=== PATIENT | male | born 1995 | race Two or more races ===

== ENCOUNTER 2017-04-13 12:33 | Inpatient (IN) | payer OTHER ==
[2017-04-13] VITALS (32 sets, daily range): BP systolic 69–150; BP diastolic 39–99
[~2017-04-13] VITALS: Ht 172.7 cm; Wt 37.2 kg
--- NOTE | 2017-04-13 12:45 | NUR ---
PATIENT BIB RA D/T LOW BP. PATIENT IS VENT/TRACH DEPENDENT. CARVALHO AND RECTAL TUBE IN PLACE. GT INTACT. SBP RUNNING IN 80'S. SAFETY AND COMFORT MEASURES IN PLACE. AWAITING MD ORDERS. Addendum: 04/13/17 at 1406 by DEON DOCUMENTATION ERROR: NO CARVALHO CATH IN PLACE UPONR ARRIVAL TO ER.
[2017-04-13] MEDS ORDERED: PIPERACILLIN /TAZOBACTAM 3.375 G in IV D5W 50 ML IV ONE (13:00)
[2017-04-13] MEDS ORDERED: IV NS 0.9% 1,000 ML BAG IV ONE (13:00)
[2017-04-13] MEDS ORDERED: VANCOMYCIN 1 GM in IV D5W 250 ML IV ONE (13:00)
--- NOTE | 2017-04-13 13:25 | NUR ---
NEW IV INSERTED ON LFA, 18 G. BLOOD DRAWN AND SENT TO LAB.
[2017-04-13 13:35] LABS: BASOPHILS % (AUTO) 0.2 % (0.0-2.0); EOSINOPHILS # (AUTO) 0.1 /CMM (0.0-0.7); EOSINOPHILS % (AUTO) 0.7 % (0.0-6.0); HEMATOCRIT 33 % (39-51); HEMOGLOBIN 10.8 g/dL (13.5-17.5); LYMPHOCYTES # (AUTO) 1.7 /CMM (0.8-4.8); LYMPHOCYTES % (AUTO) 14.3 % (20.0-44.0); MEAN CORPUSCULAR HEMOGLOBIN 32 PG (26.0-33.0); MEAN CORPUSCULAR HGB CONC 33 g/dl (31.0-36.0); MEAN CORPUSCULAR VOLUME 96 fL (80-96); MONOCYTES # (AUTO) 0.9 /CMM (0.1-1.30); MONOCYTES % (AUTO) 7.4 % (2.0-12.0); NEUTROPHILS # (AUTO) 9.4 /CMM (1.8-8.9); NEUTROPHILS % (AUTO) 77.4 % (43.0-81.0); PLATELET COUNT (AUTO) 276 /CMM (150-450); RDW COEFFICIENT OF VARIATION 18.2 (11.5-15.0); WHITE BLOOD COUNT (AUTO) 12.1 K/uL (4.3-11.0)
[2017-04-13 13:52] LABS: CALCIUM, SERUM 8.9 mg/dL (8.5-10.1); CARBON DIOXIDE 23 mmol/L (21-32); CHLORIDE 101 mmol/L (98-107); CREATININE 2.8 mg/dL (0.6-1.3); GLUCOSE 107 mg/dL (74-106); SODIUM SERUM 141 mmol/L (136-145)
[2017-04-13 13:54] LABS: UREA NITROGEN, BLOOD 104 mg/dL (7-18)
--- NOTE | 2017-04-13 13:55 | NUR ---
16 FR gonzalez catheter inserted per sterile protocal. Immediate output 0 ML of urine.
[2017-04-13 13:56] LABS: TROPONIN I < 0.017 ng/mL (0.00-0.056)
[2017-04-13 13:59] LABS: INR 1.12 (0.87-1.13); PROTHROMBIN TIME 12.1 SECS (9.5-12.7)
[2017-04-13 14:08] LABS: ALANINE AMINOTRANSFERASE 48 U/L (12-78); ALBUMIN 3.1 g/dL (3.4-5.0); ALKALINE PHOSPHATASE 185 U/L (46-116); ASPARTATE AMINOTRANSFERASE 41 U/L (15-37); BILIRUBIN,DIRECT 0.1 mg/dL (0.0-0.2); BILIRUBIN,TOTAL 0.3 mg/dL (0.2-1.0); TOTAL PROTEIN, SERUM 9.3 g/dL (6.4-8.2)
--- NOTE | 2017-04-13 14:15 | NUR ---
DR ELIZONDO CALLED AND SPOKE WITH DR HERNANDEZ
--- NOTE | 2017-04-13 14:18 | NUR ---
DR WELLS/ON-CALL PAGED
--- NOTE | 2017-04-13 14:30 | NUR ---
NEW IV INSERTED ON RAC, 20 G.
--- NOTE | 2017-04-13 15:05 | NUR ---
REPORT GIVEN TO HAZEL GUTIERREZ FOR AUDELIA. PATIENT TO BE ADMITTED TO [facility].
--- NOTE | 2017-04-13 15:43 | NUR ---
PATIENT TRANSPORTED TO ICU VIA STRETCHER WITH RT, EMT, AND RN. RNHAZEL TO PROVIDE AUDELIA.
--- NOTE | 2017-04-13 15:45 | NUR ---
ICU INITIAL NOTES RECEIVED PT VIA SOELDAD, A/O X0, RESPONSES TO TACTILE AND PAIN STIMULI, PT IS ON THE [facility] VENT SHILEY # 8 AC 20 TV 500 FIO2 40% PEEP5, SATING 100%, NO S/S OF RESP. DISTRESS OR SOB NOTED AT THIS TIME, PT WAS PLACED ON MONITOR SHOWING ST @109 BPM, NO S/S OF DISCOMFORT OR DISTRESSED NOTED AT THIS TIME, PT HAS F/C DRAINING CLOUDY CHRISSY URINE TO GRAVITY, OLD FLEXISEAL REMOVED AND NEW ONE PUT IN, PT HAS MULTIPLE SKIN ISSUES, PHOTOS TAKEN AND IN CHART, PT IS CONTRACTED, PT HAS LFA#18G,SL, RAC #18G,SL, RCW GALEN CATH, DRESSING INTACT AND CLEAN, VICKIE PICC LINE WAS INSERTED, PT HAS GTUBE, FLUSHING WELL, ALL SAFETY MEASURES IN PLACE AT ALL TIMES, CALL LIGHT WITHIN EASY REACH, WILL MONITOR PT CLOSELY FOR CHANGES
--- NOTE | 2017-04-13 15:58 | NUR ---
[facility] APPLICATION ANALYST; MD DR. MORAN'S EXCHANGED CALLED FOR ADMITTING ORDERS. UNABLE TO SPEAK WITH . EXCHANGED PAGE . WILL F.U WITH CALL BACK
[2017-04-13] MEDS ORDERED: ONDANSETRON HCL/PF 4 MG/2 ML VIAL IVP PRN (16:30)
[2017-04-13] MEDS ORDERED: ZOLPIDEM TARTRATE 5 MG TABLET PO PRN (16:30)
--- NOTE | 2017-04-13 16:48 | NUR ---
PUFF IRON OPERATOR NOTE: CALL MADE TO DR. STEARNS FOR PULMONARY CONSULT. RN SPOKE TO DR. STEARNS, INFORMED OF PATIENT. RECEIVED ORDER FOR SECOND PRESSOR OF LEVOPHED TO BE STARTED IF DOPAMINE INEFFECTIVE. ORDER READ BACK AND VERIFIED. WILL CARRY OUT.
[2017-04-13] MEDS ORDERED: DOPamine 800 MG in IV D5W 250 ML IV PRN ×4 (17:00)
[2017-04-13] MEDS ORDERED: NOREPINEPHRINE 16 MG in IV D5W 500 ML IV PRN (17:00)
[2017-04-13] MEDS ORDERED: CARV25TA2 PEG (17:04)
[2017-04-13] MEDS ORDERED: LEVE500T9 PEG (17:04)
[2017-04-13] MEDS ORDERED: OMEP40CA37 PEG (17:04)
[2017-04-13] MEDS ORDERED: PHEN20EL5 PEG (17:04)
[2017-04-13] MEDS ORDERED: METO5SOL GT (17:04)
[2017-04-13] MEDS ORDERED: LEVE100S GT (17:04)
[2017-04-13] MEDS ORDERED: ATOR20TA PEG (17:04)
[2017-04-13] MEDS ORDERED: ASPI-605 PEG (17:04)
[2017-04-13] MEDS ORDERED: LISI2.5T2 PEG (17:04)
[2017-04-13] MEDS ORDERED: FOLI0.8T2 PEG (17:04)
[2017-04-13] MEDS ORDERED: DARB100D SQ (17:05)
[2017-04-13] MEDS: IV NS 0.9% 1,000 ML IV PRN (17:18)
[2017-04-13 17:33] LABS: ABG BASE EXCESS -6.9 mmol/L; ABG OXYGEN SATURATION 98.8 % (92.0-98.5); ABG PCO2 26.2 mmHg (35.0-45.0); ABG PH 7.414 (7.350-7.450); ABG PO2 207.2 mmHg (75.0-100.0); AaDO2 47.9 mmHg; COHb 0.3 % (0.5-1.5); MetHb 0.9 % (0.0-1.5); O2Hb 97.6 % (94.0-97.0); SITE, ABG Right Radial
--- NOTE | 2017-04-13 18:44 | NUR ---
ICU NOTES CALLED PHARMACY X3, REGARDING ABX AND PRESSORS, INFORMED ME THAT IT WILL BE UP SOON
[2017-04-13] MEDS ORDERED: FEE PK DOSING 1 MIN EA MC ONE (18:52)
[2017-04-13] MEDS ORDERED: VANCOMYCIN 500 MG in IV D5W 100 ML IV PRN (19:30)
--- NOTE | 2017-04-13 19:30 | NUR ---
MAINTENANCE MECHANIC ELEVATORS: RECEIVED VENTILATOR DEPENDENT PT AND TOLERATING VENT SETTINGS ORDERED. OBTUNDED, OPENS EYES, NO EVIDENCE OF DISCOMFORT. SR ON HEALTH ECONOMIST. WITH STANDING ORDERS FOR VASOPRESSORS AND WILL START NEEDED. AFEBRILE. ON NS AT 50ML/HR. ALL IV SITES PATENT AND INTACT WT GOOD BLOOD RETURN ON VICKIE PICC LINE. GT CLAMPED. F/C PATENT AND INTACT DRAINING MINIMAL AMT. OF CHRISSY COLORED URINE. SAFETY PRECAUTION NOTED. WILL CONTINUE TO MONITOR.
[2017-04-13] MEDS: PIPERACILLIN /TAZOBACTAM 2.255 G in IV D5W 50 ML IV SCH (19:55)
--- NOTE | 2017-04-13 21:05 | NUR ---
OBSERVATORY DIRECTOR: DOPAMINE STARTED FOR BP SUPPORT. WILL CONTINUE TO MONITOR.
--- NOTE | 2017-04-13 21:11 | NUR ---
PT RECEIVED TRACH ON VENT ON NOTED SETTINGS. NO DISTRESS NOTED. PT TOLERATING VENT SETTINGS. SX'D FOR MOD AMT OF THICK PALE SECRETIONS. VENT ALARMS SET AND AUDIBLE. AMBU BAG AT BEDSIDE. WILL CONTINUE TO MONITOR. Addendum: 04/13/17 at 2112 by CORBY LUTZ RT Amended: Links added.
[2017-04-13] MEDS: HEPARIN SODIUM, PORCINE 5000 UNITS/1 ML VIAL SQ SCH (21:12)
[2017-04-14] VITALS (88 sets, daily range): BP systolic 88–167; BP diastolic 45–116
[2017-04-14] MEDS: PIPERACILLIN /TAZOBACTAM 2.255 G in IV D5W 50 ML IV SCH ×4 (00:58→17:09)
[2017-04-14] MEDS: ACETAMINOPHEN 325 MG TABLET PO PRN (01:06)
--- NOTE | 2017-04-14 02:00 | NUR ---
FOURTH HAND: REASSESSMENT DONE AFTER TYLENOL WAS GIVEN WT GOOD EFFECT. NO EVIDENCE OF DISCOMFORT M/B FACIAL GRIMACE AT THIS TIME. SR ON STUDENT NURSE.
[2017-04-14 04:54] LABS: BASOPHILS # (AUTO) 0.1 /CMM (0.0-0.2); BASOPHILS % (AUTO) 0.6 % (0.0-2.0); HEMATOCRIT 26 % (39-51); HEMOGLOBIN 8.8 g/dL (13.5-17.5); LYMPHOCYTES # (AUTO) 1.2 /CMM (0.8-4.8); LYMPHOCYTES % (AUTO) 13.9 % (20.0-44.0); MEAN CORPUSCULAR HEMOGLOBIN 32 PG (26.0-33.0); MEAN CORPUSCULAR HGB CONC 33 g/dl (31.0-36.0); MEAN CORPUSCULAR VOLUME 96 fL (80-96); MONOCYTES # (AUTO) 0.5 /CMM (0.1-1.30); MONOCYTES % (AUTO) 5.6 % (2.0-12.0); NEUTROPHILS # (AUTO) 6.9 /CMM (1.8-8.9); NEUTROPHILS % (AUTO) 79.9 % (43.0-81.0); PLATELET COUNT (AUTO) 210 /CMM (150-450); RDW COEFFICIENT OF VARIATION 17.6 (11.5-15.0); RED BLOOD CELL COUNT(AUTO) 2.75 MIL/uL (4.5-6.0); WHITE BLOOD COUNT (AUTO) 8.6 K/uL (4.3-11.0)
[2017-04-14 05:04] LABS: CALCIUM, SERUM 8.7 mg/dL (8.5-10.1); CREATININE 2.1 mg/dL (0.6-1.3); MAGNESIUM 1.9 mg/dL (1.8-2.4); PHOSPHORUS 4.3 mg/dL (2.5-4.9); POTASSIUM 3.5 mmol/L (3.5-5.1)
--- NOTE | 2017-04-14 06:45 | NUR ---
ANALYSIS OR RESEARCH SAFETY INSPECTOR: NO SIGNIFICANT AUDELIA DURING THE SHIFT. STILL ON DOPAMINE 17MCG/KG/MIN FOR BP SUPPORT. REMAINED AFEBRILE.
[2017-04-14] MEDS ORDERED: PANTOPRAZOLE 40 MG TABLET.DR PO SCH (07:30)
--- NOTE | 2017-04-14 07:40 | NUR ---
RT PATIENT REC'D TRACHED ON [facility] VENT WITH NOTED SETTINGS ALIE WELL. VENT ALARMS CHECKED + AUDIBLE. VENT PLUGGED INTO RED OUTLET. PATIENT SX'D WITH SMALL AMT PALE SEMITHICK SECRETIONS. B/S BRANDON OJEDA. AMBU BAG AT [facility]. CONT CURRENT PLAN OF RESP CARE Addendum: 04/14/17 at 0954 by FATIMAH PEDRESEN RT Amended: Links added.
[2017-04-14] MEDS ORDERED: HYDROGEL DRESSING 90 GM TUBE TP PRN (08:00)
--- NOTE | 2017-04-14 08:02 | NUR ---
WOUND CARE CONSULT: PT PRESENTS WITH STAGE 3 ULCER TO SACRUM AND DEEP TISSUE INJURY (INTACT) TO RT BUTTOCK WELL SCARRING TO LEFT HIP AND BACK, PRESENT ON ADMISSION. PT IS EXTREMELY CACHECTIC, IMMOBILE ON VENT. RECTAL TUBE IN PLACE WITH SOME LEAKAGE OF STOOL AROUND TUBE. ALL SKIN PROTECTION MEASURES IN PLACE AND DISCUSSED WITH NURSING STAFF. RECOMMEND SURGICAL CONSULT. WILL SEE PRN. DAMIAN IN AGREEMENT WITH PLAN OF CARE. Addendum: 04/14/17 at 0804 by NANO ORTIZ WNDNU Amended: Links added.
[2017-04-14] MEDS ORDERED: LEVE100S GT (08:13)
[2017-04-14] MEDS: HEPARIN SODIUM, PORCINE 5000 UNITS/1 ML VIAL SQ SCH ×2 (08:58→21:27)
[2017-04-14] MEDS: PANTOPRAZOLE 40 MG/PACK PACK GT SCH (08:58)
[2017-04-14] MEDS: HYDROGEL DRESSING 90 GM TUBE TP SCH (10:45)
--- NOTE | 2017-04-14 11:30 | NUR ---
ICU/RN - Notes Dobutamine titrated off, and discontinued per Dr Jean. Pt to be kept NPO for now, per Dr Jean, will resume tube feeding at another time. Mother at bedside. Addendum: 04/14/17 at 1906 by HENRRY MELCHOR RN ERROR: Dopamine drip titrated off, not Dobutamine.
[2017-04-14] MEDS ORDERED: MORPHINE SULFATE INJ 2 MG/ML DISP.SYRIN IV PRN ×2 (12:00→16:00)
[2017-04-14] MEDS ORDERED: EPOETIN ALFA (10,000 UNIT) 10,000 UNIT/ML VIAL IV ONE (12:00)
--- NOTE | 2017-04-14 12:32 | NUR ---
ICU/RN - Notes Pt noted with facial grimacing, tachycardia appears in discomfort. Administered Morphine 2mg IVP as ordered for PRN pain. Comfort measures rendered. Family at bedside. Will reassess pain accordingly.
[2017-04-14] MEDS: MORPHINE SULFATE INJ 2 MG/ML DISP.SYRIN IV PRN ×2 (14:36→18:54)
--- NOTE | 2017-04-14 14:36 | NUR ---
ICU/RN - Notes Pt still appears to be in discomfort, with facial grimacing, hypertension, tachycardia. Administered Morphine 4mg IVP as ordered for PRN pain. Comfort measures rendered. Will reassess pain accordingly.
[2017-04-14] MEDS: IV NS 0.9% 1,000 ML IV PRN (15:44)
[2017-04-14] MEDS: METOCLOPRAMIDE HCL 5 MG/5 ML UDC GT SCH (17:10)
--- NOTE | 2017-04-14 18:00 | NUR ---
ICU/RN - Notes Hemodialysis completed, no output.
--- NOTE | 2017-04-14 20:19 | NUR ---
PT RECEIVED TRACH ON VENT ON NOTED SETTINGS. NO DISTRESS NOTED. PT TOLERATING VENT SETTINGS. SX'D FOR MOD AMT OF THICK WHITE SECRETIONS. VENT ALARMS SET AND AUDIBLE. AMBU BAG AT BEDSIDE. WILL CONTINUE TO MONITOR. Addendum: 04/14/17 at 2020 by CORBY LUTZ RT Amended: Links added.
[2017-04-14] MEDS: ATORVASTATIN 10 MG TABLET PEG SCH (21:21)
[2017-04-14] MEDS: LEVETIRACETAM SOL (5 ML) 100 MG/ML UDC GT SCH (21:26)
[2017-04-15] VITALS (36 sets, daily range): BP systolic 98–146; BP diastolic 52–106
[2017-04-15] MEDS: PIPERACILLIN /TAZOBACTAM 2.255 G in IV D5W 50 ML IV SCH ×4 (00:13→17:00)
[2017-04-15] MEDS: MORPHINE SULFATE INJ 2 MG/ML DISP.SYRIN IV PRN ×3 (01:17→12:28)
[2017-04-15 04:35] LABS: BASOPHILS % (AUTO) 0.9 % (0.0-2.0); EOSINOPHILS # (AUTO) 0.2 /CMM (0.0-0.7); EOSINOPHILS % (AUTO) 2.8 % (0.0-6.0); HEMATOCRIT 23 % (39-51); HEMOGLOBIN 7.9 g/dL (13.5-17.5); LYMPHOCYTES # (AUTO) 1.2 /CMM (0.8-4.8); LYMPHOCYTES % (AUTO) 21.7 % (20.0-44.0); MEAN CORPUSCULAR HEMOGLOBIN 32 PG (26.0-33.0); MEAN CORPUSCULAR HGB CONC 34 g/dl (31.0-36.0); MEAN CORPUSCULAR VOLUME 96 fL (80-96); MONOCYTES # (AUTO) 0.3 /CMM (0.1-1.30); MONOCYTES % (AUTO) 6.4 % (2.0-12.0); NEUTROPHILS # (AUTO) 3.7 /CMM (1.8-8.9); NEUTROPHILS % (AUTO) 68.2 % (43.0-81.0); PLATELET COUNT (AUTO) 170 /CMM (150-450); RDW COEFFICIENT OF VARIATION 18.2 (11.5-15.0); RED BLOOD CELL COUNT(AUTO) 2.45 MIL/uL (4.5-6.0); WHITE BLOOD COUNT (AUTO) 5.4 K/uL (4.3-11.0)
[2017-04-15 04:49] LABS: CALCIUM, SERUM 8.7 mg/dL (8.5-10.1); MAGNESIUM 1.6 mg/dL (1.8-2.4); PHOSPHORUS 3.1 mg/dL (2.5-4.9); POTASSIUM 3.4 mmol/L (3.5-5.1)
[2017-04-15 05:47] LABS: EOSINOPHILS % (MANUAL) 5 % (0-4); LYMPHOCYTES % (MANUAL) 20 % (16-48); MONOCYTES % (MANUAL) 3 % (0-11.0); NEUTROPHILS % (MANUAL) 72 (42-76)
--- NOTE | 2017-04-15 06:40 | NUR ---
BEATER BOSS: NO SIGNIFICANT AUDELIA DURING THE SHIFT. REMAINED ALERT TO SELF. TOLERATING VENT SETTINGS ORDERED WT NO ACUTE DISTRESS. SR/ST ON AIRPLANE PILOT SUPERVISOR. AFEBRILE. PAIN MED GIVEN ORDERED FOR FACIAL GRIMACE & ELEVATED HR WT GOOD EFFECT AFTER REASSESSMENT. TOLERATING IVF WT MINIMAL TEA COLORED URINE. FLEXI SEAL IRRIGATED DUE TO MODERATE AMT. OF SOFT STOOL LEAK. KEPT CLEAN AND DRY. ALL NEEDS MET.
[2017-04-15] MEDS: METOCLOPRAMIDE HCL 5 MG/5 ML UDC GT SCH (08:09)
[2017-04-15] MEDS: ASPIRIN 81 MG TAB.CHEW PEG SCH (08:11)
[2017-04-15] MEDS: VIT B CMPLX 3/FA/VIT C/BIOTIN 1 TAB TABLET PEG SCH (08:11)
[2017-04-15] MEDS: LEVETIRACETAM SOL (5 ML) 100 MG/ML UDC GT SCH ×2 (08:11→21:01)
[2017-04-15] MEDS: PANTOPRAZOLE 40 MG/PACK PACK GT SCH (08:11)
[2017-04-15] MEDS: HYDROGEL DRESSING 90 GM TUBE TP SCH (08:12)
[2017-04-15] MEDS: HEPARIN SODIUM, PORCINE 5000 UNITS/1 ML VIAL SQ SCH ×2 (08:14→21:03)
--- NOTE | 2017-04-15 08:15 | NUR ---
ICU/RN - Notes Pt noted with facial grimacing, tachycardia appears in discomfort. Administered Morphine 2mg IVP as ordered for PRN pain. Comfort measures rendered. Will reassess pain accordingly. Addendum: 04/16/17 at 1106 by HENRRY MELCHOR RN Morphine 4mg not 2mg
[2017-04-15] MEDS ORDERED: PANTOPRAZOLE 40 MG/PACK PACK PEG SCH (09:00)
[2017-04-15] MEDS ORDERED: RENAL NOVASOURCE 1,000 ML BOTTLE GT PRN (09:30)
--- NOTE | 2017-04-15 09:30 | NUR ---
ICU/RN - Notes Dr Morrell at bedside for evaluation. MD made aware of Hgb 7.9, no new orders at this time. Ordered to resume tube feeding, will carry out and monitor for residual.
[2017-04-15] MEDS ORDERED: POTASSIUM CHLORIDE 20 MEQ POWDER PACKET PEG SCH (11:30)
[2017-04-15] MEDS ORDERED: Magnesium 1GM/D5W 100ML PREMIX PIGGYBACK IV ONE (11:30)
[2017-04-15] MEDS: Magnesium 1GM/D5W 100ML PREMIX 100 ML IV SCH ×2 (11:52→13:09)
[2017-04-15] MEDS ORDERED: METOCLOPRAMIDE HCL 10 MG/10 ML UDC GT PRN (15:30)
[2017-04-15] MEDS: IV NS 0.9% 1,000 ML IV PRN (16:03)
--- NOTE | 2017-04-15 20:00 | NUR ---
WATER MANAGER: GT RESIDUAL NOTED AT 250ML IN GREENISH COLOR. WILL HOLD FEEDING AT THIS TIME AND WILL CONTINUE TO MONITOR.
[2017-04-15] MEDS ORDERED: LEVETIRACETAM SOL (5 ML) 100 MG/ML UDC GT SCH (21:00)
[2017-04-15] MEDS: ATORVASTATIN 10 MG TABLET PEG SCH (21:02)
--- NOTE | 2017-04-15 21:05 | NUR ---
MANAGER BALANCE: HELD KEPPRA 500MG/5ML PT ALREADY HAD 1500MG/15ML AND DID NOT HAVE DIALYSIS.
--- NOTE | 2017-04-15 21:07 | NUR ---
PT RECEIVED TRACH ON VENT ON NOTED SETTINGS. NO DISTRESS NOTED. PT TOLERATING VENT SETTINGS. SX'D FOR SML AMT OF THIN SECRETIONS. VENT ALARMS SET AND AUDIBLE. AMBU BAG AT BEDSIDE. WILL CONTINUE TO MONITOR. Addendum: 04/15/17 at 2108 by CORBY LUTZ RT Amended: Links added.
--- NOTE | 2017-04-15 21:40 | NUR ---
IRON CARRIER: CALLED AND NOTIFIED DR. DANIELLE THAT RESIDUAL IS STILL AT 250ML. WT NEW ORDERS TO DC GTF, DC NS AND CHANGE TO D5W AT 50ML/HR, DC REGLAN 50MG VIA GT BID PRN AND CHANGE TO 5MG IVP Q8H. NOTED AND CARRIED OUT.
[2017-04-15] MEDS: IV D5W 1,000 ML IV PRN (22:14)
[2017-04-15] MEDS ORDERED: METOCLOPRAMIDE HCL 10 MG/2 ML VIAL ONE (22:21)
[2017-04-15] MEDS: METOCLOPRAMIDE HCL 10 MG/2 ML VIAL IV SCH (22:22)
[2017-04-16] VITALS (19 sets, daily range): BP systolic 101–155; BP diastolic 54–96
[2017-04-16] MEDS: PIPERACILLIN /TAZOBACTAM 2.255 G in IV D5W 50 ML IV SCH ×2 (00:18→05:20)
--- NOTE | 2017-04-16 04:15 | NUR ---
REALTIME COURT REPORTER: GT RESIDUAL NOTED TO BE MORE THAN 300ML, CLOUDY GREENISH AND SMELLED LIKE STRONG IV MEDICATION. HOB KEPT ELEVATED. WILL ADMINISTER REGLAN ORDERED.
[2017-04-16] MEDS: MORPHINE SULFATE INJ 2 MG/ML DISP.SYRIN IV PRN ×3 (04:28→18:07)
[2017-04-16] MEDS ORDERED: METOCLOPRAMIDE HCL 10 MG/2 ML VIAL ONE (04:43)
[2017-04-16 04:55] LABS: CALCIUM, SERUM 8.5 mg/dL (8.5-10.1); CREATININE 1.2 mg/dL (0.6-1.3); MAGNESIUM 2.1 mg/dL (1.8-2.4); POTASSIUM 3.4 mmol/L (3.5-5.1)
[2017-04-16] MEDS: METOCLOPRAMIDE HCL 10 MG/2 ML VIAL IV SCH ×3 (05:20→21:36)
[2017-04-16 07:41] LABS: BASOPHILS % (AUTO) 0.5 % (0.0-2.0); EOSINOPHILS # (AUTO) 0.1 /CMM (0.0-0.7); HEMATOCRIT 23 % (39-51); HEMOGLOBIN 7.7 g/dL (13.5-17.5); MEAN CORPUSCULAR HEMOGLOBIN 32 PG (26.0-33.0); MEAN CORPUSCULAR HGB CONC 33 g/dl (31.0-36.0); MEAN CORPUSCULAR VOLUME 96 fL (80-96); MONOCYTES # (AUTO) 0.3 /CMM (0.1-1.30); MONOCYTES % (AUTO) 5.8 % (2.0-12.0); NEUTROPHILS # (AUTO) 3.5 /CMM (1.8-8.9); NEUTROPHILS % (AUTO) 70.7 % (43.0-81.0); PLATELET COUNT (AUTO) 194 /CMM (150-450); RDW COEFFICIENT OF VARIATION 17.2 (11.5-15.0); RED BLOOD CELL COUNT(AUTO) 2.42 MIL/uL (4.5-6.0); WHITE BLOOD COUNT (AUTO) 4.9 K/uL (4.3-11.0)
--- NOTE | 2017-04-16 08:29 | NUR ---
ICU/RN - Notes Dr Morrell made aware of pt's Hgb level 7.7 today, per MD no transfusion. also cleared pt for [facility] status. Charge nurse aware.
[2017-04-16] MEDS: PANTOPRAZOLE 40 MG VIAL IV SCH (08:31)
[2017-04-16] MEDS: VIT B CMPLX 3/FA/VIT C/BIOTIN 1 TAB TABLET PEG SCH (08:31)
[2017-04-16] MEDS: HYDROGEL DRESSING 90 GM TUBE TP SCH (08:31)
[2017-04-16] MEDS: ASPIRIN 81 MG TAB.CHEW PEG SCH (08:31)
[2017-04-16] MEDS: HEPARIN SODIUM, PORCINE 5000 UNITS/1 ML VIAL SQ SCH ×2 (08:32→21:37)
[2017-04-16] MEDS: LEVETIRACETAM (500MG) 1,500 MG in IV NS 0.9% 100 ML IV SCH ×2 (08:42→21:37)
--- NOTE | 2017-04-16 09:45 | NUR ---
ICU/RN - Notes Pt noted with facial grimacing, elevated BP, appears in discomfort. Administered Morphine 4mg IVP as ordered for PRN pain. Comfort measures rendered. Will reassess pain accordingly.
[2017-04-16] MEDS ORDERED: PIPERACILLIN /TAZOBACTAM 2.25 G in IV D5W 50 ML IV SCH (10:04)
--- NOTE | 2017-04-16 10:25 | NUR ---
RECEIVED REPORT FROM [facility], EXPECTING PATIENTS ARRIVAL SOON.
--- NOTE | 2017-04-16 10:50 | NUR ---
ICU/RN - Transfer Pt transferred to [facility] 117-1 per ACLS protocol. Report given to MATT Lambert for continuity of care.
--- NOTE | 2017-04-16 10:54 | NUR ---
RN INITIAL NOTES RECEIVED PT IN BED, ON MECHANICAL VENT, SHILEY 8, AC 14, TV 500, FI02, 33% PEEP 5, SATURATING 100%. V/S BP 143/65, P 90, TEMP 98.8. RESP 14. NO PAIN NOTED, NO RESPIRATORY DISTRESS NOTED. OBTUNDED, OPENS EYES, CARVALHO CATH DRAINING YELLOW URINE, FLEXISEAL DRAINING. PT GOT MULTIPLE SKIN ISSUES, WILL FOLLOW WOUND TREATMENT ORDER. GT IS PATENT, NPO EXCEPT MEDS. IV SITES ARE FLUSHED AND PATENT - VICKIE PICC LINE, LFA 18 G S/L. DR DANIELLE AWARE OF MAG 2.1, HGB 7.7 - NO BLOOD TRANSFUSION. WAITING FOR KUB, AND BI CONSULT. WILL CONTINUE TO MONITOR.
[2017-04-16] MEDS ORDERED: VANCOMYCIN 1 GM in IV D5W 250 ML IV PRN (12:00)
[2017-04-16] MEDS ORDERED: POTASSIUM CHLORIDE 20 MEQ POWDER PACKET PEG SCH (12:00)
[2017-04-16] MEDS: ACETAMINOPHEN 325 MG TABLET PO PRN (12:31)
[2017-04-16] MEDS: PIPERACILLIN /TAZOBACTAM 2.25 G in IV D5W 50 ML IV SCH ×2 (12:31→17:21)
[2017-04-16] MEDS ORDERED: VANCOMYCIN 1 GM in IV D5W 250 ML IV ONE (15:00)
[2017-04-16] MEDS: LACTOBACILLUS RHAMNOSUS GG 1 EACH CAP.SPRINK PO SCH (17:20)
--- NOTE | 2017-04-16 18:51 | NUR ---
RN CLOSING NOTES NO SIGNIFICANT CHANGE OF CONDITION, PT TOLERATING CURRENT MECHANICAL VENT SETTING. NO RESPIRATORY DISTRESS NOTED. ON TELE MONITOR, SINUS RHYTHM, CARVALHO CATH IS DRAINING URINE 150ML, FLEXISEAL IS DRAINING LIQUID BM. WOUND TREATMENT DONE, TURNED AND REPOSITIONED PT. STILL NPO, EXCEPT MEDS, NOTED 20 ML OF RESIDUAL. KUB DONE, PICC VICKIE, LFA 18, PATENT. ON D5 @50ML/HR. MONITORED PAIN FREQUENTLY USING FLACC. WILL ENDORSED TO PM NURSE FOR CONTINUATION OF CARE
--- NOTE | 2017-04-16 19:30 | NUR ---
[facility] RN INITIAL NOTES RECEIVED PATIENT NON-VERBAL, OPENS EYES. WITH MUSCLE TWITCHING NOTE ON FACE AND ARMS. PER REPORT IT'S PATIENTS NORM. NO RESPIRATORY DISTRESS NOTED. PATIENT VENT DEPENDENT AC 14, VT 500, FIO2 30%, PEEP 5, SPO2 100%. PATIENT NPO EXCEPT MEDS. WITH GT PATENT, INTACT, IN PLACE. WITH VICKIE PICC LINE PATENT AND INTACT WITH IVF RUNNING. F/C PATENT AND INTACT, DRAINING BY GRAVITY. WITH FLEXISEAL IN PLACE LIQUID BROWN STOOL NOTED. SKIN WARM AND DRY TO TOUCH. HOB ELEVATED. SIDE RAILS UP AND LOCKED. BED KEPT AT LOWEST POSITION. CALL LIGHT KEPT WITHIN EASY REACH. VANCOMYCIN RUNNING. WILL CONTINUE TO MONITOR.
--- NOTE | 2017-04-16 19:31 | NUR ---
[facility]. VENT ALARM WORKING AND AUDIBLE, VENT PLUGGED INTO RED OUTLET. TRACH SECURE IN AND IN PROPER POSITION, CUFF CHECKED COLDFUSION. SXN MODERATE AMOUNT OF YELLOWISH WHITE THICK SECRETIONS. BILATERAL BS NOTED. NO RESPIRATORY DISTRESS NOTED AT THIS TIME. AMBU BAG AT [facility], WILL CONTINUE TO MONITOR.
[2017-04-16] MEDS: IV D5W 1,000 ML IV PRN (21:36)
[2017-04-16] MEDS: ATORVASTATIN 10 MG TABLET PEG SCH (21:37)
[2017-04-17] VITALS (8 sets, daily range): BP systolic 95–143; BP diastolic 58–102
[2017-04-17] MEDS: MORPHINE SULFATE INJ 2 MG/ML DISP.SYRIN IV PRN ×2 (00:35→11:54)
[2017-04-17] MEDS: PIPERACILLIN /TAZOBACTAM 2.25 G in IV D5W 50 ML IV SCH ×5 (00:35→23:31)
[2017-04-17] MEDS: METOCLOPRAMIDE HCL 10 MG/2 ML VIAL IV SCH ×3 (06:09→22:18)
[2017-04-17 06:39] LABS: BASOPHILS % (AUTO) 0.6 % (0.0-2.0); EOSINOPHILS # (AUTO) 0.1 /CMM (0.0-0.7); EOSINOPHILS % (AUTO) 2.7 % (0.0-6.0); HEMATOCRIT 25 % (39-51); HEMOGLOBIN 8.4 g/dL (13.5-17.5); LYMPHOCYTES # (AUTO) 1.1 /CMM (0.8-4.8); LYMPHOCYTES % (AUTO) 21.4 % (20.0-44.0); MEAN CORPUSCULAR HEMOGLOBIN 33 PG (26.0-33.0); MEAN CORPUSCULAR HGB CONC 34 g/dl (31.0-36.0); MEAN CORPUSCULAR VOLUME 95 fL (80-96); MONOCYTES # (AUTO) 0.3 /CMM (0.1-1.30); MONOCYTES % (AUTO) 6.1 % (2.0-12.0); NEUTROPHILS # (AUTO) 3.7 /CMM (1.8-8.9); NEUTROPHILS % (AUTO) 69.2 % (43.0-81.0); PLATELET COUNT (AUTO) 203 /CMM (150-450); RED BLOOD CELL COUNT(AUTO) 2.59 MIL/uL (4.5-6.0); WHITE BLOOD COUNT (AUTO) 5.4 K/uL (4.3-11.0)
--- NOTE | 2017-04-17 07:00 | NUR ---
RN NOTES RECEIVED PT ON BED , OBTUNDED ,VENT DEPENDENT, SHILEY 8, TOLERATING VENT SETTING WELL, AC 14, TV 500, FI02, 30% PEEP 5, SATURATING 100%.TRACH CARE DONE, NO SOB NOTED , CARVALHO CATH DRAINING TO GRAVITY WITH YELLOW URINE, FLEXISEAL DRAINING TO GRAVITY , PT GOT MULTIPLE SKIN ISSUES, WILL FOLLOW WOUND TREATMENT ORDER. GT IS PATENT, NPO EXCEPT MEDS. VICKIE PICC LINE CDI, R CW HD CATH CDI, SR UP x3, BED LOCKED AND IN LOWEST POSITION , CALL LIGHT WITHIN EASY REACH , CONTINUE TO MONITOR PT CLOSELY AND NOTIFY MD FOR ANY SIGNIFICANT CHANGES .
[2017-04-17 07:13] LABS: ALBUMIN 2.6 g/dL (3.4-5.0); BILIRUBIN,TOTAL 0.3 mg/dL (0.2-1.0); CALCIUM, SERUM 8.6 mg/dL (8.5-10.1); MAGNESIUM 1.6 mg/dL (1.8-2.4); PHOSPHORUS 3.8 mg/dL (2.5-4.9); POTASSIUM 3.9 mmol/L (3.5-5.1); TOTAL PROTEIN, SERUM 7.7 g/dL (6.4-8.2)
--- NOTE | 2017-04-17 07:37 | NUR ---
Received male ángel pt on mechanical vent. Pt ángel is secure. Vent is plugged into a red outlet, alarms are set and audible, and BVM is at bedside. Addendum: 04/17/17 at 0738 by ZARIA POOLE RT Amended: Links added.
--- NOTE | 2017-04-17 07:39 | NUR ---
[facility] RN CLOSING NOTES NO SIGNIFICANT CHANGES OVERNIGHT. NO RESPIRATORY DISTRESS NOTED, TOLERATED VENT SETTINGS, SUCTIONED NEEDED. PAIN MANAGED NEEDED. WITH GT PATENT AND INTACT. F/C IN PLACE, DRAINING BY GRAVITY. ON TELE MONITOR SINUS RHYTHM. FLEXISEAL IN PLACE PATENT AND INTACT. IVF RUNNING ORDERED. SKIN WARM AND DRY TO TOUCH. DVT PUMP IN PLACE. PATIENT KEPT CLEAN AND DRY. TURNED AND REPOSITIONED Q2 AND PRN. SIDE RAILS UP AND LOCKED. BED KEPT AT LOWEST POSITION. CONTINUITY OF CARE ENDORSED TO AM NURSE.
[2017-04-17] MEDS: VIT B CMPLX 3/FA/VIT C/BIOTIN 1 TAB TABLET PEG SCH (08:35)
[2017-04-17] MEDS: PANTOPRAZOLE 40 MG VIAL IV SCH (08:35)
[2017-04-17] MEDS: ASPIRIN 81 MG TAB.CHEW PEG SCH (08:35)
[2017-04-17] MEDS: LEVETIRACETAM (500MG) 1,500 MG in IV NS 0.9% 100 ML IV SCH ×2 (08:35→22:18)
[2017-04-17] MEDS: LACTOBACILLUS RHAMNOSUS GG 1 EACH CAP.SPRINK PO SCH ×2 (08:35→17:22)
[2017-04-17] MEDS: HEPARIN SODIUM, PORCINE 5000 UNITS/1 ML VIAL SQ SCH ×2 (08:36→22:19)
[2017-04-17] MEDS: HYDROGEL DRESSING 90 GM TUBE TP SCH (08:37)
[2017-04-17] MEDS: Z GUARD REMEDY 2 OZ OINT TP PRN (08:37)
[2017-04-17] MEDS: Magnesium 1GM/D5W 100ML PREMIX 100 ML IV SCH ×2 (11:54→14:22)
--- NOTE | 2017-04-17 12:00 | NUR ---
RN NOTES PT STABLE , TRACH SUCTIONING DONE, CONTINUE TO MONITOR .
[2017-04-17] MEDS: RENAL NOVASOURCE 1,000 ML BOTTLE GT PRN (15:50)
--- NOTE | 2017-04-17 18:35 | NUR ---
RN NOTES PT STABLE , TRACH CARE DONE , MEDICATED PER MD ORDER , D5W AT 50CC/HR RUNNING VIA R UPPER ARM PICC LINE , TOLERATING TF AT 10CC/HR WELL AT THIS TIME , SR UP x3, CALL LIGHT WITHIN EASY REACH , NO SIGNIFICANT CHANGES NOTED ON THIS SHIFT .
--- NOTE | 2017-04-17 18:45 | NUR ---
RN NOTES CALL MADE TO PHARMACY REGARDING FLUCONAZOLE , NOT RECEIVED FROM PHARMACY YET ,
[2017-04-17] MEDS: FLUCONAZOLE IN NS,PREMIX 200 MG in PREMIX 1 EA IV SCH ×2 (19:36)
--- NOTE | 2017-04-17 20:00 | NUR ---
[facility] RN NOTE PT IN BED OBTUNDED WITH EYES CLOSED. ON TRACH/VENT TOLERATING SETTINGS WELL, NO DISTRESS OR DISCOMFORT NOTED. NO S/S OF PAIN NOTED. GTF NOVASOURCE INFUSING AT 20 ML/HR, 0 ML RESIDUAL NOTED. AND IVF D5W INFUSING AT 50 ML/HR , NO S/S OF INFILTRATION NOTED. ON TEL SR HR 73.F/C INTACT AND PATENT DRAINING YELLOWISH COLOR URINE. FLEX SEAL ALSO INTACT AND PATENT DRAINING LIQUIDY BROWN STOOL. REPOSITION HIM FOR SKIN MANAGEMENT. KEPT HER DRY AND CLEAN. ALL NEEDS ATTENDED. SIDE RAILS UP X 3 AND CALL LIGHT WITHIN REACH. WILL ENDORSE TO DAY SHIFT NURSE FOR CONTINUE TO CARE.
[2017-04-17] MEDS: ATORVASTATIN 10 MG TABLET PEG SCH (22:20)
[2017-04-17] MEDS ORDERED: DIVALPROEX SODIUM 125 MG CAP.SPRINK ONE (22:22)
[2017-04-17] MEDS: DIVALPROEX SODIUM 125 MG CAP.SPRINK GT SCH (22:23)
[2017-04-18] VITALS: BP 108/74
[2017-04-18] MEDS: IV D5W 1,000 ML IV PRN (03:51)
[2017-04-18 04:00] VITALS: BP 107/70
[2017-04-18] MEDS: METOCLOPRAMIDE HCL 10 MG/2 ML VIAL IV SCH ×3 (05:48→21:42)
[2017-04-18] MEDS: PIPERACILLIN /TAZOBACTAM 2.25 G in IV D5W 50 ML IV SCH ×3 (05:48→17:12)
[2017-04-18 06:26] LABS: CALCIUM, SERUM 8.5 mg/dL (8.5-10.1); CREATININE 1.1 mg/dL (0.6-1.3); MAGNESIUM 1.9 mg/dL (1.8-2.4); POTASSIUM 3.4 mmol/L (3.5-5.1)
--- NOTE | 2017-04-18 06:33 | NUR ---
[facility] RN NOTE NO CHANGE IN CONDITION. PT IN BED OBTUNDED WITH EYES CLOSED. NO DISTRESS OR DISCOMFORT NOTED. GTF AND IVF INFUSING WELL. ON TEL SR HR 77. REPOSITION HIM Q2H, KEPT HIM DRY AND CLEAN. ALL NEEDS ATTENDED. SIDE RAILS UP X 3 AND CALL LIGHT WITHIN REACH. WILL ENDORSE TO DAY SHIFT NURSE FOR CONTINUE TO CARE.
--- NOTE | 2017-04-18 07:00 | NUR ---
RN NOTE RECEIVE PT ON BED ,NONVERBAL , OBTUNDED WITH EYES CLOSED. TRACH/VENT DEPENDENT TOLERATING CURRENT VENT SETTINGS WELL, NO DISTRESS NOTED , GTF NOVASOURCE INFUSING AT 25 ML/HR AT THIS TIME , NO RESIDUAL NOTED , IVF D5W INFUSING AT 50 ML/HR VIA R UA PICC LINE ON TEL SR HR 7O'S , CARVALHO INTACT AND PATENT DRAINING YELLOWISH COLOR URINE. FLEX SEAL INTACT AND PATENT DRAINING LIQUIDY BROWN STOOL. ALL NEEDS ATTENDED. SIDE RAILS UP X 3 AND CALL LIGHT WITHIN EASY REACH. CONTINUE TO MONITOR PT CLOSELY AND NOTIFY MD FOR ANY SIGNIFICANT CHANGES
[2017-04-18 08:00] VITALS: BP 121/82
[2017-04-18] MEDS: DIVALPROEX SODIUM 125 MG CAP.SPRINK GT SCH ×2 (08:41→21:40)
[2017-04-18] MEDS: VIT B CMPLX 3/FA/VIT C/BIOTIN 1 TAB TABLET PEG SCH (08:41)
[2017-04-18] MEDS: ASPIRIN 81 MG TAB.CHEW PEG SCH (08:41)
[2017-04-18] MEDS: LACTOBACILLUS RHAMNOSUS GG 1 EACH CAP.SPRINK PO SCH ×2 (08:41→17:11)
[2017-04-18] MEDS: HEPARIN SODIUM, PORCINE 5000 UNITS/1 ML VIAL SQ SCH ×2 (08:42→21:47)
[2017-04-18] MEDS: PANTOPRAZOLE 40 MG VIAL IV SCH (08:44)
[2017-04-18] MEDS: HYDROGEL DRESSING 90 GM TUBE TP SCH (08:45)
[2017-04-18] MEDS: LORAZEPAM INJ 2 MG/ML VIAL IV PRN (08:58)
[2017-04-18] MEDS ORDERED: VIT B CMPLX 3/FA/VIT C/BIOTIN 1 TAB TABLET PO SCH (09:00)
[2017-04-18] MEDS: LEVETIRACETAM (500MG) 1,500 MG in IV NS 0.9% 100 ML IV SCH (09:25)
[2017-04-18] MEDS ORDERED: POTASSIUM CHLORIDE 20 MEQ POWDER PACKET GT SCH (11:30)
[2017-04-18 12:00] VITALS: BP 115/73
--- NOTE | 2017-04-18 12:00 | NUR ---
RN NOTES PT STABLE , TRACH SUCTIONING DONE , TOLERATING TF WELL , CONTINUE TO MONITOR .
[2017-04-18] MEDS: MORPHINE SULFATE INJ 2 MG/ML DISP.SYRIN IV PRN (15:09)
[2017-04-18 16:00] VITALS: BP 105/72
[2017-04-18] MEDS ORDERED: VANCOMYCIN 1 GM in IV D5W 250 ML IV ONE (16:00)
[2017-04-18] MEDS: FLUCONAZOLE IN NS,PREMIX 200 MG in PREMIX 1 EA IV SCH ×2 (17:51)
--- NOTE | 2017-04-18 18:23 | NUR ---
RN NOTES VSS STABLE, MEDICATED PER MD ORDER, RESPIRATION EVEN AND UNLABORED, TOLERATING TF WELL AT 25CC/HR , NO FLXISEAL WITH 20CC OF LOOSE STOOL ON THIS SHIFT , SR UPx3, CALL LIGHT WITHIN EASY REACH, NO SIGNIFICANT CHANGES NOTED ON THIS SHIFT .
[2017-04-18 20:00] VITALS: BP 139/87
--- NOTE | 2017-04-18 20:01 | NUR ---
[facility] RN NOTE RECEIVED PT IN BED SEMIFOWLER. OBTUNDED, WITH OPEN EYES. ON VENT/TRACH TOLERATING THE SETTINGS WELL. SUCTIONED HIM FREQUENTLY. NO DISTRESS OR DISCOMFORT NOTED. NO S/S OF PAIN NOTED. GTF NOVASOURCE INFUSING AT 25 ML/HR, NOTED HIGH RESIDUAL 200 ML, GTF PUT ON HOLD WILL RECHECK LATER. ALSO INFORMED CHARGE NURSE KAREN. IVF D5W @ 50 ML/HR INFUSING WELL VICKIE TRIPLE LUMEN CATH, NO S/S OF INFILTRATION NOTED. F/C INTACT AND PATENT DRAINING YELLOWISH COLOR URINE BY GRAVITY. ALSO FLEX SEAL INTACT AND PATENT 0 OUTPUT AT THIS TIME NOTED. REPOSITION HIM Q2H. KEPT HIM DRY AND CLEAN. ALL NEEDS ATTENDED. VSS. CONTINUE TO MONITOR HIM.
--- NOTE | 2017-04-18 20:28 | NUR ---
[facility] RN NOTE REPORT GIVEN NURSE NEVAREZ FOR CONTINUE TO CARE.
--- NOTE | 2017-04-18 20:30 | NUR ---
[facility] RN INITIAL NOTE RECEIVED REPORT FROM MEENU GUTIERREZ. PT RECEIVED RESTING IN BED. OBTUNDED. NO ACUTE DISTRESS NOTED. BREATHING IS REGULAR, EVEN AND UNLABORED AT THIS TIME. NO S/SX OF DISCOMFORT. TELE- SINUS RHYTHM 95. IV SITES VICKIE MIDLINE CLEAN AND INTACT WITH FLUIDS RUNNING. IV RAC AND LFA CLEAN, DRY, PATENT, AND FLUSHING WELL. GTUBE IN PLACE WITH FEEDING TURNED OFF DUE TO HIGH RESIDUALS. WILL RECHECK SHORTLY FOR RESIDUALS. CARVALHO CATHETER CLEAN AND IN PLACE, DRAINING BY GRAVITY YELLOW URINE. FLEXISEAL IN PLACE. ALL SAFETY MEASURES IN PLACE. WILL CONTINUE TO MONITOR.
[2017-04-18] MEDS: LEVETIRACETAM SOL (5 ML) 100 MG/ML UDC GT SCH (21:40)
[2017-04-18] MEDS: ATORVASTATIN 10 MG TABLET PEG SCH (21:41)
[2017-04-19] VITALS: BP 125/92
[2017-04-19] MEDS: PIPERACILLIN /TAZOBACTAM 2.25 G in IV D5W 50 ML IV SCH ×5 (00:24→23:04)
[2017-04-19] MEDS: RENAL NOVASOURCE 1,000 ML BOTTLE GT PRN (00:43)
--- NOTE | 2017-04-19 01:00 | NUR ---
[facility] RN NOTE RECHECKED GTUBE WITHOUT ANY RESIDUALS NOTED. FEEDING RESTARTED. WILL CONTINUE TO MONITOR.
[2017-04-19 04:00] VITALS: BP 118/86
[2017-04-19] MEDS: IV D5W 1,000 ML IV PRN (04:03)
--- NOTE | 2017-04-19 05:00 | NUR ---
[facility] RN NOTE GTUBE RECHECKED FOR FEEDING TOLERANCE. 150ML RESIDUALS NOTED RUNNING AT 20ML/HR. FEEDING WAS STOPPED AND WILL CONTINUE TO MONITOR.
[2017-04-19] MEDS: METOCLOPRAMIDE HCL 10 MG/2 ML VIAL IV SCH ×3 (05:32→21:15)
[2017-04-19] MEDS ORDERED: VANCOMYCIN 500 MG in IV D5W 100 ML IV PRN (06:00)
--- NOTE | 2017-04-19 07:00 | NUR ---
[facility] RN CLOSING NOTE PT REMAINED STABLE DURING SHIFT. IV SITES INTACT. KEPT CLEAN AND COMFORTABLE. REPOSITIONED FOR COMFORT Q2H. CARVALHO CATHETER AND FLEXI SEAL IN PLACE AND DRAINING BY GRAVITY. GTUBE FEEDING STILL OFF AT THIS TIME. NO ACUTE DISTRESS NOTED. WILL ENDORSE TO NEXT SHIFT FOR AUDELIA.
--- NOTE | 2017-04-19 07:15 | NUR ---
[facility] RN INITIAL NOTES: RECEIVED PT AWAKE ON BED, OBTUNDED, NOT IN ANY DISTRESS. PT ON MV VIA TRACH (SHILEY 8) WITH THE FF SETTINGS: AC 14, TV 500, FIO2 30%, PEEP 5, SATURATING AT 100%. ON TELEMONITOR, ST/SR. HAS PATENT AND INTACT FLEXISEAL AND FC. PT HAS VICKIE PICC LINE, ON D5W X 50 CC/HR INFUSING WELL. G-TUBE CLAMPED AT THIS TIME DUE TO HIGH RESIDUAL (100-200CC) FROM PREVIOUS SHIFT. PROVIDED COMFORT & SAFETY MEASURES. BED KEPT LOW & IN LOCKED POS. CALL LIGHT PLACED W/IN REACH. WILL CONTINUE TO MONITOR.
[2017-04-19 07:39] LABS: CALCIUM, SERUM 8.3 mg/dL (8.5-10.1); POTASSIUM 3.6 mmol/L (3.5-5.1)
[2017-04-19 08:00] VITALS: BP 126/90
--- NOTE | 2017-04-19 08:00 | NUR ---
RN NOTES: CHECKED FOR GT RESIDUAL, 5 CC. RESUME TUBE FEEDING AT 10 CC/HR. WILL CONTINUE TO MONITOR.
[2017-04-19] MEDS: LEVETIRACETAM SOL (5 ML) 100 MG/ML UDC GT SCH ×2 (08:26→21:15)
[2017-04-19] MEDS: DIVALPROEX SODIUM 125 MG CAP.SPRINK GT SCH ×2 (08:27→21:16)
[2017-04-19] MEDS: LACTOBACILLUS RHAMNOSUS GG 1 EACH CAP.SPRINK PO SCH ×2 (08:27→16:50)
[2017-04-19] MEDS: ASPIRIN 81 MG TAB.CHEW PEG SCH (08:28)
[2017-04-19] MEDS: PANTOPRAZOLE 40 MG VIAL IV SCH (08:28)
[2017-04-19] MEDS: VIT B CMPLX 3/FA/VIT C/BIOTIN 1 TAB TABLET PEG SCH (08:28)
[2017-04-19] MEDS: Z GUARD REMEDY 2 OZ OINT TP PRN (08:28)
[2017-04-19] MEDS: HYDROGEL DRESSING 90 GM TUBE TP SCH (08:28)
[2017-04-19] MEDS: HEPARIN SODIUM, PORCINE 5000 UNITS/1 ML VIAL SQ SCH ×2 (08:28→21:15)
[2017-04-19 12:00] VITALS: BP 138/84
[2017-04-19 16:00] VITALS: BP 128/70
[2017-04-19] MEDS: FLUCONAZOLE IN NS,PREMIX 200 MG in PREMIX 1 EA IV SCH ×2 (17:25)
--- NOTE | 2017-04-19 18:47 | NUR ---
[facility] RN CLOSING NOTES: NO ACUTE CHANGES NOTED W/IN SHIFT. PT TOLERATED CURRENT MV SETTINGS, SATURATING AT 100%. SECRETION SUCTIONED. ON TELEMONITOR, SR. FLEXISEAL (LEVEL 50CC) AND FC KEPT PATENT AND INTACT. VICKIE PICC LINE, ON D5W X 50 CC/HR INFUSING WELL. ON CONT G-TUBE FEEDING, NOVASOURCE AT 25 CC/HR, NO RESIDUAL NOTED UPON CHECKING. KEPT WELL RESTED. NEEDS ATTENDED. WOUND CARE DONE. BED KEPT LOW & IN LOCKED POS. CALL LIGHT PLACED W/IN REACH. WILL ENDORSE TO PM RN FOR AUDELIA.
--- NOTE | 2017-04-19 19:30 | NUR ---
RN INITIAL NOTE RECEIVED PT IN NO ACUTE DISTRESS IN BED. PT IS OBTUNDED, BUT ABLE TO OPEN EYES. PT IS ON MECHANICAL VENT VIA TRACH. TRACH SITE IS CLEAN DRY INTACT AND PATENT. PT TOLERATING VENT SETTING WELL WITH O2 SAT @ 100%. PT IS ON TELE WITH SR ON THE MONITOR. PT HAS FLEXISEAL THAT IS CLEAN DRY INTACT AND PATENT WITH STOOL DRAINING INTO BAG. PT HAS F/C THAT IS CLEAN DRY INTACT AND PATENT WITH CLEAR YELLOW URINE DRAINING. PT HAS GTUBE THAT IS CLEAN DRY INTACT AND PATENT WITH NOVASOURCE @ 25ML/HR AND TOLERATING WELL WITH 0 RESIDUAL. PT HAS VICKIE PICC LINE THAT IS CLEAN DRY INTACT AND PATENT WITH D5W @ 50ML/HR. BED IN LOW LOCK POSITION WITH RIALS UP X 2. CALL LIGHT WITHIN REACH AND ALL SAFETY MEASURES ENSURED AND CARRIED OUT. WILL CONTINUE TO MONITOR PT.
[2017-04-19 20:00] VITALS: BP 146/92
[2017-04-19] MEDS: ATORVASTATIN 10 MG TABLET PEG SCH (21:16)
[2017-04-20] VITALS: BP 129/91
[2017-04-20] MEDS: IV D5W 1,000 ML IV PRN (02:34)
[2017-04-20 04:00] VITALS: BP 145/86
[2017-04-20] MEDS: METOCLOPRAMIDE HCL 10 MG/2 ML VIAL IV SCH ×3 (05:09→21:00)
[2017-04-20] MEDS: PIPERACILLIN /TAZOBACTAM 2.25 G in IV D5W 50 ML IV SCH ×4 (05:09→23:01)
--- NOTE | 2017-04-20 06:24 | NUR ---
RN CLOSING NOTE PT REMAINS IN NO ACUTE DISTRESS IN BED. PT DID NOT HAVE ANY SIGNIFICANT CHANGE IN CONDITION DURING SHIFT. ALL NEEDS MET, ALL ORDERS CARRIED OUT. PT TOLERATED VENT SETTING WELL WITH O2 SAT @ 100%. WILL ENDORSE TO AM RN FOR CONTINUITY OF CARE.
[2017-04-20 07:04] LABS: BASOPHILS % (AUTO) 0.2 % (0.0-2.0); EOSINOPHILS # (AUTO) 0.1 /CMM (0.0-0.7); EOSINOPHILS % (AUTO) 1.3 % (0.0-6.0); HEMATOCRIT 27 % (39-51); HEMOGLOBIN 9.1 g/dL (13.5-17.5); LYMPHOCYTES # (AUTO) 1.3 /CMM (0.8-4.8); LYMPHOCYTES % (AUTO) 18.5 % (20.0-44.0); MEAN CORPUSCULAR HEMOGLOBIN 32 PG (26.0-33.0); MEAN CORPUSCULAR HGB CONC 34 g/dl (31.0-36.0); MEAN CORPUSCULAR VOLUME 95 fL (80-96); MONOCYTES # (AUTO) 0.3 /CMM (0.1-1.30); MONOCYTES % (AUTO) 4.9 % (2.0-12.0); NEUTROPHILS # (AUTO) 5.2 /CMM (1.8-8.9); NEUTROPHILS % (AUTO) 75.1 % (43.0-81.0); PLATELET COUNT (AUTO) 303 /CMM (150-450); RDW COEFFICIENT OF VARIATION 16.5 (11.5-15.0); RED BLOOD CELL COUNT(AUTO) 2.85 MIL/uL (4.5-6.0); WHITE BLOOD COUNT (AUTO) 6.9 K/uL (4.3-11.0)
[2017-04-20 07:23] LABS: CALCIUM, SERUM 8.6 mg/dL (8.5-10.1); CREATININE 1.1 mg/dL (0.6-1.3); MAGNESIUM 1.3 mg/dL (1.8-2.4); PHOSPHORUS 3.4 mg/dL (2.5-4.9); POTASSIUM 3.2 mmol/L (3.5-5.1)
[2017-04-20 08:00] VITALS: BP 149/91
[2017-04-20] MEDS: HEPARIN SODIUM, PORCINE 5000 UNITS/1 ML VIAL SQ SCH (08:12)
[2017-04-20] MEDS: DIVALPROEX SODIUM 125 MG CAP.SPRINK GT SCH ×2 (08:13→21:21)
[2017-04-20] MEDS: VIT B CMPLX 3/FA/VIT C/BIOTIN 1 TAB TABLET PEG SCH (08:13)
[2017-04-20] MEDS: LACTOBACILLUS RHAMNOSUS GG 1 EACH CAP.SPRINK PO SCH ×2 (08:13→16:10)
[2017-04-20] MEDS: PANTOPRAZOLE 40 MG VIAL IV SCH (08:13)
[2017-04-20] MEDS: LEVETIRACETAM SOL (5 ML) 100 MG/ML UDC GT SCH ×2 (08:13→21:19)
[2017-04-20] MEDS: HYDROGEL DRESSING 90 GM TUBE TP SCH (08:15)
[2017-04-20] MEDS: ASPIRIN 81 MG TAB.CHEW PEG SCH (08:18)
[2017-04-20] MEDS: MORPHINE SULFATE INJ 2 MG/ML DISP.SYRIN IV PRN (10:07)
[2017-04-20] MEDS: LORAZEPAM INJ 2 MG/ML VIAL IV PRN (11:55)
[2017-04-20 12:00] VITALS: BP 136/93
--- NOTE | 2017-04-20 12:05 | NUR ---
DR. WELLS ON UNIT MADE AWARE PATIENT APPEARING UNCOMFORTABLE WITH FACIAL GRIMACING DIAPHORESIS AND TACHYCARDIA 110 MAX. MADE AWARE OF PATIENT RECEIVING MORPHINE AND ATIVAN THIS AM PRN AGITATION/ PAIN/ FASCICULATIONS RESEMBLING SEIZURE. CURRENTLY PATIENT NO LONGER TWITCHING, HR IS NOW 106. BP 167/105. RECEIVING DIALYSIS. MD AWARE OF MG AND K LEVEL- PENDING ORDERS.
[2017-04-20 16:00] VITALS: BP 123/78
[2017-04-20] MEDS ORDERED: VANCOMYCIN 1 GM in IV D5W 250 ML IV ONE ×2 (16:00→18:00)
[2017-04-20] MEDS: FLUCONAZOLE IN NS,PREMIX 200 MG in PREMIX 1 EA IV SCH ×2 (18:15)
--- NOTE | 2017-04-20 19:25 | NUR ---
[facility] WITH NOTED SETTINGS. VENT ALARM WORKING AND AUDIBLE, VENT PLUGGED INTO RED OUTLET. TRACH SECURE IN AND IN PROPER POSITION, CUFF CHECKED VEGETABLE SCULLION. SXN SMALL AMOUNT OF WHITE THICK SECRETIONS. BILATERAL BS NOTED. NO RESPIRATORY DISTRESS NOTED AT THIS TIME. AMBU BAG AT [facility], WILL CONTINUE TO MONITOR.
--- NOTE | 2017-04-20 19:49 | NUR ---
RN NOTES: RECEIVED PATIENT IN BED, EYES CLOSE WITH NO RESPIRATORY DISTRESS OR SHORTNESS OF BREATH. BREATHING EVEN AND UNLABORED. NO PHYSICAL MANIFESTATION OF PAIN OF THIS TIME. FC PATENT AND INTACT DRAINING CLEAR YELLOW WITH NO FOUL ODOR URINE. GTUBE IN PLACE , FEEDING WELL TOLERATED. VITAL SIGNS WNL. WILL CONTINUE TO [facility].
[2017-04-20 20:00] VITALS: BP 109/51
[2017-04-20] MEDS: ATORVASTATIN 10 MG TABLET PEG SCH (21:19)
[2017-04-21] VITALS: BP 93/43
[2017-04-21 04:00] VITALS: BP 110/82
[2017-04-21] MEDS: METOCLOPRAMIDE HCL 10 MG/2 ML VIAL IV SCH ×3 (04:32→21:36)
[2017-04-21] MEDS: RENAL NOVASOURCE 1,000 ML BOTTLE GT PRN (04:33)
[2017-04-21] MEDS: IV D5W 1,000 ML IV PRN (04:33)
[2017-04-21] MEDS: PIPERACILLIN /TAZOBACTAM 2.25 G in IV D5W 50 ML IV SCH ×4 (06:48→23:06)
[2017-04-21 06:49] LABS: CALCIUM, SERUM 8.5 mg/dL (8.5-10.1); CREATININE 0.9 mg/dL (0.6-1.3); POTASSIUM 3.1 mmol/L (3.5-5.1)
[2017-04-21 08:00] VITALS: BP 103/84
[2017-04-21] MEDS: LEVETIRACETAM SOL (5 ML) 100 MG/ML UDC GT SCH ×2 (08:43→21:38)
[2017-04-21] MEDS: ASPIRIN 81 MG TAB.CHEW PEG SCH (08:44)
[2017-04-21] MEDS: VIT B CMPLX 3/FA/VIT C/BIOTIN 1 TAB TABLET PEG SCH (08:44)
[2017-04-21] MEDS: DIVALPROEX SODIUM 125 MG CAP.SPRINK GT SCH ×2 (08:45→21:35)
[2017-04-21] MEDS: LACTOBACILLUS RHAMNOSUS GG 1 EACH CAP.SPRINK PO SCH ×2 (08:45→16:38)
[2017-04-21] MEDS: MORPHINE SULFATE INJ 2 MG/ML DISP.SYRIN IV PRN ×2 (08:45→23:06)
[2017-04-21] MEDS: PANTOPRAZOLE 40 MG VIAL IV SCH (08:45)
[2017-04-21] MEDS: HYDROGEL DRESSING 90 GM TUBE TP SCH (08:46)
[2017-04-21 12:00] VITALS: BP 152/66
[2017-04-21] MEDS: POTASSIUM CHLORIDE 20 MEQ POWDER PACKET GT SCH ×2 (12:14→13:33)
[2017-04-21] MEDS: LORAZEPAM INJ 2 MG/ML VIAL IV PRN (13:34)
[2017-04-21 16:00] VITALS: BP 133/84
[2017-04-21] MEDS: VANCOMYCIN 500 MG in IV D5W 100 ML IV SCH (16:38)
[2017-04-21] MEDS ORDERED: FLUCONAZOLE (100 MG) 100 MG TABLET PO SCH (18:00)
--- NOTE | 2017-04-21 18:46 | NUR ---
breathing stable with mechanical ventilator. noted minimal tracheal secretions this shift. minimal GT residuals. no complications with VICKIE IV, F/C or flexiseal. patient had occasional tachycardia, facial grimacing and perspiration- administered morphine prn 1 time and ativan prn 1 time- this alieve patient's symptoms of possible distress. no active seizure, no bleeding, no aspiration, no fever, no new skin break down. patient still unable to verbalize needs, unable to follow stimulus with eyes. patient is contracted- provided PROM as tolerated- poor activity tolerance. unable to assess understanding of dx. repositioned q2h
--- NOTE | 2017-04-21 19:15 | NUR ---
RN INITIAL NOTES RECEIVED PATIENT WITH EYES OPENING SPONTANEOUSLY, POOR TRACKING, PATIENT DOESN'T FOLLOW COMMANDS. APPEARS CALM, NO DISTRESS, NO ACUTE SIGNS OF PAIN/DISCOMFORT. PATIENT SR, WITH HR OF 78. PATIENT WITH TRACH, C/D/I, MIDLINE, AIRWAY SUCTIONED WITH THICK, YELLOW SECRETIONS. TOLERATING CURRENT MECH VENT SETTINGS WELL. GTF ORDERED, NO GASTRIC RESIDUAL NOTED AT THIS TIME. VICKIE PICC LINE, FLUSHED AND PATENT, GOOD BLOOD RETURN NOTED, IVF OF D5W AT 50CC/HR INFUSING ORDERED. L FOREARM G18, FLUSHED AND PATENT, ON SL. R CHEST WALL HD CATHETER WITH DRESSING INTACT. F/C IN PLACE, DRAINING WITH CLEAR, YELLOW URINE. FLEXISEAL REMAINS INTACT, WITH BROWN LIQUID STOOL DRAINING. PATIENT'S NEEDS ANTICIPATED AND MET. SAFETY AND COMFORT ENSURED. BED IN LOW AND LOCKED POSITION. HOB ELEVATED. WILL MONITOR CLOSELY.
--- NOTE | 2017-04-21 19:32 | NUR ---
[facility] WITH NOTED SETTINGS. VENT ALARM WORKING AND AUDIBLE, VENT PLUGGED INTO RED OUTLET. TRACH SECURE IN AND IN PROPER POSITION, CUFF CHECKED PRODUCTION COST ESTIMATOR. SXN MODERATE AMOUNT OF YELLOWISH WHITE THICK SECRETIONS. BILATERAL BS NOTED. NO RESPIRATORY DISTRESS NOTED AT THIS TIME. AMBU BAG AT [facility], WILL CONTINUE TO MONITOR.
[2017-04-21 20:00] VITALS: BP 122/68
[2017-04-21] MEDS: ATORVASTATIN 10 MG TABLET PEG SCH (21:35)
[2017-04-21] MEDS: FLUCONAZOLE (100 MG) 100 MG TABLET PO SCH (21:36)
[2017-04-22] VITALS: BP 146/98
--- NOTE | 2017-04-22 00:30 | NUR ---
RN NOTES AT 2305, PATIENT MEDICATED WITH MORPHINE 4MG PRN ORDERED FOR NOTED DISCOMFORT AND DISTRESS WITH BP OF 149/86 AND HR OF 131. PATIENT EXHIBITING FREQUENT FACIAL GRIMACING AND SQUIRMING. PATIENT REASSESSED AT THIS TIME AND STILL NOTED WITH HR IN THE 130s. OCCASIONAL FACIAL GRIMACING NOTED. BP OF 147/111. PATIENT REPOSITIONED FOR COMFORT WITH MINIMAL HELP. PATIENT MEDICATED WITH ATIVAN 0.5MG PRN ORDERED. WILL MONITOR.
[2017-04-22] MEDS: LORAZEPAM INJ 2 MG/ML VIAL IV PRN (00:33)
[2017-04-22] MEDS: VANCOMYCIN 500 MG in IV D5W 100 ML IV SCH (03:32)
[2017-04-22] MEDS: IV D5W 1,000 ML IV PRN ×2 (03:32→23:22)
[2017-04-22 04:00] VITALS: BP_SYST 108; BP_SYST 143; BP_DIAS 70; BP_DIAS 85
[2017-04-22] MEDS: RENAL NOVASOURCE 1,000 ML BOTTLE GT PRN ×2 (05:23→23:22)
[2017-04-22] MEDS: PIPERACILLIN /TAZOBACTAM 2.25 G in IV D5W 50 ML IV SCH ×4 (05:23→23:22)
[2017-04-22] MEDS: METOCLOPRAMIDE HCL 10 MG/2 ML VIAL IV SCH ×3 (05:23→20:53)
--- NOTE | 2017-04-22 06:48 | NUR ---
RN CLOSING NOTES PATIENT WITH NO ACUTE CHANGE IN CONDITION OBSERVED OVERNIGHT. PATIENT AFEBRILE. ST ON TELE WITH HR IN THE 115s. TOLERATED VENT SETTINGS WELL, NO DISTRESS, AIRWAY KEPT CLEAR AND PATENT, SUCTIONED NEEDED. TOLERATED GTF WELL, NO GASTRIC RESIDUAL. IVF INFUSING ORDERED ON PATIENT'S VICKIE PICC LINE. ALL DUE MEDS GIVEN ORDERED. PATIENT'S NEEDS ANTICIPATED AND MET. AM LABS DRAWN. WOUND CARE RENDERED ORDERED. TRACH CARE DONE. SAFETY AND COMFORT ENSURED AT ALL TIMES. TURNED AND REPOSITIONED. HOB ELEVATED. WILL ENDORSE ACCORDINGLY FOR CONTINUITY OF CARE.
[2017-04-22 06:59] LABS: CALCIUM, SERUM 8.5 mg/dL (8.5-10.1); POTASSIUM 3.6 mmol/L (3.5-5.1)
[2017-04-22 08:00] VITALS: BP_SYST 115; BP_SYST 118; BP_DIAS 59; BP_DIAS 78
[2017-04-22] MEDS: HYDROGEL DRESSING 90 GM TUBE TP SCH (09:00)
[2017-04-22] MEDS: PANTOPRAZOLE 40 MG VIAL IV SCH (09:55)
[2017-04-22] MEDS: LEVETIRACETAM SOL (5 ML) 100 MG/ML UDC GT SCH ×2 (09:56→20:53)
[2017-04-22] MEDS: DIVALPROEX SODIUM 125 MG CAP.SPRINK GT SCH ×2 (09:57→20:53)
[2017-04-22] MEDS: LACTOBACILLUS RHAMNOSUS GG 1 EACH CAP.SPRINK PO SCH ×2 (09:57→16:51)
[2017-04-22] MEDS: ASPIRIN 81 MG TAB.CHEW PEG SCH (09:57)
[2017-04-22] MEDS: VIT B CMPLX 3/FA/VIT C/BIOTIN 1 TAB TABLET PEG SCH (09:57)
[2017-04-22 12:00] VITALS: BP_SYST 108; BP_SYST 115; BP_DIAS 70; BP_DIAS 81
[2017-04-22 16:00] VITALS: BP 115/65
--- NOTE | 2017-04-22 19:00 | NUR ---
RN INITIAL NOTES RECEIVED PATIENT IN BED, RESTING COMFORTABLY. NO DISTRESS. SR TO ST ON TELE WITH HR OF 95 TO 110. AIRWAY SUCTIONED AND KEPT CLEAR AND PATENT, VENT SETTINGS TOLERATING WELL. GTF INFUSING WELL, NO GASTRIC RESIDUAL NOTED. IVF INFUSING ORDERED ON PATIENT'S VICKIE PICC LINE. L FOREARM PIV, FLUSHED AND PATENT, ON SL. R CHESTWALL POST REMOVAL OF TUNNELED IJ PERMACATH DONE THIS AM, WITH PRESSURE DRESSING IN PLACE, WILL MONITOR FOR ANY SKIN CHANGES AND BLEEDING. F/C INTACT AND DRAINING WELL WITH CLEAR, YELLOW URINE. FLEXISEAL IN PLACE, SECURED PLACEMENT NEEDED, ENSURED TO BE KINK-FREE. KEPT PATIENT CLEAN AND DRY. PM CARE RENDERED. WOUND TREATMENT RENDERED ORDERED. PATIENT'S NEEDS ANTICIPATED AND MET. SAFETY AND COMFORT ENSURED. BED IN LOW AND LOCKED POSITION. TURNED AND REPOSITIONED PATIENT FOR COMFORT. WILL MONITOR.
[2017-04-22 20:00] VITALS: BP 102/71
[2017-04-22] MEDS: FLUCONAZOLE (100 MG) 100 MG TABLET PO SCH (20:53)
[2017-04-22] MEDS: ATORVASTATIN 10 MG TABLET PEG SCH (23:22)
[2017-04-23] VITALS: BP 116/78
[2017-04-23 04:00] VITALS: BP 122/78
[2017-04-23] MEDS: METOCLOPRAMIDE HCL 10 MG/2 ML VIAL IV SCH ×2 (05:21→12:09)
[2017-04-23] MEDS: PIPERACILLIN /TAZOBACTAM 2.25 G in IV D5W 50 ML IV SCH ×2 (05:21→12:09)
[2017-04-23] MEDS: LORAZEPAM INJ 2 MG/ML VIAL IV PRN ×2 (05:31→15:44)
--- NOTE | 2017-04-23 06:35 | NUR ---
RN CLOSING NOTES PATIENT WITH NO ACUTE CHANGE IN CONDITION OBSERVED OVERNIGHT. REMAINS AFEBRILE, SR AT 90s. VENT SETTINGS TOLERATED WELL, AIRWAY SUCTIONED NEEDED. GTF TOLERATED WELL, NO RESIDUAL NOTED. IVF INFUSING ORDERED, ALL DUE MEDS GIVEN ORDERED. F/C AND FLEXISEAL REMAINS INTACT AND DRAINING VIA GRAVITY. AM LABS DRAWN. WOUND CARE RENDERED ORDERED. PATIENT'S SAFETY AND COMFORT ENSURED. BED IN LOW AND LOCKED POSITION. HOB ELEVATED. TURNED AND REPOSITIONED. WILL ENDORSE ACCORDINGLY FOR CONTINUITY OF CARE.
[2017-04-23 07:00] LABS: CALCIUM, SERUM 8.8 mg/dL (8.5-10.1); CREATININE 1.1 mg/dL (0.6-1.3); POTASSIUM 3.2 mmol/L (3.5-5.1)
[2017-04-23] MEDS ORDERED: VANCOMYCIN 500 MG in IV D5W 100 ML IV SCH (07:00)
--- NOTE | 2017-04-23 07:10 | NUR ---
FORREST RN INITIAL NOTES: RECEIVED PT AWAKE ON BED, OBTUNDED, NOT IN ANY DISTRESS. PT ON MV VIA TRACH (SHILEY 8) WITH THE FF SETTINGS: AC 14, TV 500, FIO2 30%, PEEP 5, SATURATING AT 100%. ON TELEMONITOR, ST/SR. HAS PATENT AND INTACT FLEXISEAL (LEVEL 150) AND FC. PT HAS VICKIE PICC LINE, ON D5W X 50 CC/HR INFUSING WELL. HAS PEG ON CONT TUBE FEEDING NOVASOURCE X 25 CC/HR INFUSING WELL, NO RESIDUAL NOTED UPON CHECKING. PROVIDED COMFORT & SAFETY MEASURES. BED KEPT LOW & IN LOCKED POS. CALL LIGHT PLACED W/IN REACH. WILL CONTINUE TO MONITOR.
[2017-04-23 08:00] VITALS: BP 138/87
[2017-04-23] MEDS: PANTOPRAZOLE 40 MG VIAL IV SCH (08:28)
[2017-04-23] MEDS: HYDROGEL DRESSING 90 GM TUBE TP SCH (08:29)
[2017-04-23] MEDS: ASPIRIN 81 MG TAB.CHEW PEG SCH (08:29)
[2017-04-23] MEDS: LACTOBACILLUS RHAMNOSUS GG 1 EACH CAP.SPRINK PO SCH (08:29)
[2017-04-23] MEDS: VIT B CMPLX 3/FA/VIT C/BIOTIN 1 TAB TABLET PEG SCH (08:29)
[2017-04-23] MEDS: LEVETIRACETAM SOL (5 ML) 100 MG/ML UDC GT SCH (08:29)
[2017-04-23] MEDS: DIVALPROEX SODIUM 125 MG CAP.SPRINK GT SCH (08:29)
[2017-04-23] MEDS: Z GUARD REMEDY 2 OZ OINT TP PRN (08:30)
--- NOTE | 2017-04-23 10:00 | NUR ---
RN NOTES: PT SEEN & EXAMINED BY DR. WELLS W/ DC ORDERS BACK TO SNF.
[2017-04-23] MEDS: POTASSIUM CHLORIDE 20 MEQ POWDER PACKET NG SCH ×2 (10:43→12:09)
[2017-04-23 12:00] VITALS: BP 137/82
--- NOTE | 2017-04-23 13:28 | NUR ---
RN NOTES RECEIVED A CALL FROM DR WELLS REGARDING MED RECON FOR DISCHARGE, PER CONT IV ATB VANCO AND MERLYNSYN X 2 MORE DAYS, AND CONTINUE MEDS. SWITCH ALL IV MEDS TO PO. ORDERS READ BACK NOTED AND CARRIED OUT
[2017-04-23] MEDS: MORPHINE SULFATE INJ 2 MG/ML DISP.SYRIN IV PRN (15:07)
[2017-04-23 16:00] VITALS: BP 134/99
--- NOTE | 2017-04-23 16:49 | NUR ---
IRON WORKER NOTES: PT DC'D TO [facility] ORDERED. DC MEDICATION ORDERS VERIFIED WITH DR. Cristiane WELLS C/O CN. DC INSTRUCTION AND DOCUMENTS GIVEN TO EMT/RT. REPORT GIVEN TO MATT ASCENCIO, REQUESTED TO KEEP VICKIE PICC LINE, FC AND FLEXISEAL. ID BAND AND TELEMONITOR BOX REMOVED. WOUND PHOTOS TAKEN. PT'S TRACH AND PEG KEPT IN PLACE AND INTACT. PT LEFT FACILITY IN STABLE CONDITION VIA GURNEY ACCOMPANIED BY RT & EXTERNAL GRINDER. LEFT VM TO FAMILY CONTACT INFORMATION RE: DC.
== END 2017-04-23 16:40 | DRG 720 ==
LOC: ER 12:36 → ICU 15:20 → TELE-TD 04-16 10:44
PROVIDERS: ADMIT Internal Medicine; ATTEND Internal Medicine
PROC: 5A1955Z Respiratory Ventilation, Greater than 96 Consecutive Hours (ICD-10-PCS; principal; 2017-04-13)
PROC: 5A1D60Z (ICD-10-PCS; 2017-04-14)
PROC: 02HV33Z Insertion of Infusion Device into Superior Vena Cava, Percutaneous Approach (ICD-10-PCS; 2017-04-22)
PROC: 05PYX3Z Removal of Infusion Device from Upper Vein, External Approach (ICD-10-PCS; 2017-04-22)
DX: A41.9 Sepsis, unspecified organism (principal); R65.21 Severe sepsis with septic shock; Z99.11 Dependence on respirator [ventilator] status; G93.1 Anoxic brain damage, not elsewhere classified; J18.9 Pneumonia, unspecified organism; G93.40 Encephalopathy, unspecified; J96.11 Chronic respiratory failure with hypoxia; K55.1 Chronic vascular disorders of intestine; Z93.0 Tracheostomy status; N18.6 End stage renal disease; I12.0 Hypertensive chronic kidney disease with stage 5 chronic kidney disease or end stage renal disease; Z99.2 Dependence on renal dialysis; Z86.74 Personal history of sudden cardiac arrest; G40.909 Epilepsy, unspecified, not intractable, without status epilepticus; Z93.1 Gastrostomy status; R13.10 Dysphagia, unspecified; Z74.01 Bed confinement status; R53.81 Other malaise; F19.10 Other psychoactive substance abuse, uncomplicated; D62 Acute posthemorrhagic anemia; D64.9 Anemia, unspecified; N39.0 Urinary tract infection, site not specified; Z79.899 Other long term (current) drug therapy; Z79.82 Long term (current) use of aspirin
CPT/HCPCS: 31720; 36415; 36569; 36600; 71010-TC; 74000-TC; 80048-TC; 80053-TC; 80061-TC; 80076-TC; 80202-TC; 82803-TC; 82962-TC; 83605-TC; 83735-TC; 84100-TC; 84484-TC; 85025-TC; 85730-TC; 87040-TC; 87070-TC; 87081-TC; 87086-TC; 87186-TC; 90935-TC; 94002-TC; 94003-TC; 94640-TC; 94762-TC; 99082-TC; A4216; A4606; A6248; A6402; A6403; C1751; C9113; J0885; J1265; J1450; J1644; J1953; J2060; J2270; J2543; J2765; J3370; J3475; J7030; J7060; J7070; J8597; Z7610